=== PATIENT | male | born 1955 | race Caucasian/White ===

== ENCOUNTER 2020-12-13 13:52 | Outpatient (CLI) | payer MEDICARE, OTHER, SELFPAY ==
[2020-12-13 14:26] LABS: Hematocrit 45.3 % (42.0-52.0); Hemoglobin 15.4 g/dL (14.0-18.0); Mean Corpuscular Hemoglobin 28.8 pg (26-34); Mean Corpuscular Volume 84.7 fl (80-100); Platelet Count Result 279 k/mm3 (150-375); Red Blood Count 5.35 M/mm3 (4.6-6.20); Red Cell Distribution Width 12.5 % (11.5-14.5); White Blood Count 10.1 K/mm3 (4.5-10.0)
[2020-12-13 15:10] LABS: Prostate Specific Antigen 1.4 ng/mL (< OR = 4.0)
[2020-12-13 15:51] LABS: Iron 114 ug/dL (49-181)
[2020-12-13 16:00] LABS: Percent Iron Saturation 33 % (20-50)
[2020-12-17 22:40] LABS: Testosterone Free 65.5 pg/mL (35.0-155.0); Testosterone Total 385 ng/dL (250-1100)
== END 2020-12-13 13:53 | disposition home or self-care (01) ==
LOC: ANHLAB 14:02
PROVIDERS: PCP Physician Assistant; Visit Provider Physician Assistant
DX: Z12.5 Encounter for screening for malignant neoplasm of prostate (principal); D58.2 Other hemoglobinopathies; E83.119 Hemochromatosis, unspecified; R53.83 Other fatigue
CPT/HCPCS: 36415; 82728; 83540; 83550; 84153; 84402; 84403; 84443; 85027; C9803; G0103; U0003; U0005

== ENCOUNTER 2021-08-10 11:26 | Outpatient (CLI) | payer MEDICARE, OTHER, SELFPAY ==
[2021-08-10 12:20] LABS: Alanine Aminotransferase 22 U/L (4-50); Albumin Level 4.6 g/dL (3.5-5.1); Alkaline Phosphatase 69 U/L (38-126); Anion Gap 9 mmol/L (8-16); Aspartate Amino Transferase 26 U/L (17-59); Bilirubin,Total 0.6 mg/dL (0.2-1.3); Blood Urea Nitrogen 18 mg/dL (9-20); Calcium 8.9 mg/dL (8.4-10.2); Carbon Dioxide 28 mmol/L (22-30); Chloride 99 mmol/L (98-107); Cholesterol 210 mg/dL (0-200); Estimated Glomerular Filt Rate > 60; Glucose 154 mg/dL (65-110); HDL Direct 30 mg/dL; Potassium 5.4 mmol/L (3.4-5.0); Sodium 136 mmol/L (137-145); Triglycerides 369 mg/dL (<150)
[2021-08-10 12:31] LABS: LDL Cholesterol Direct 126 mg/dL
[2021-08-10 12:32] LABS: Digoxin 0.5 ng/mL (0.8-2.0)
[2021-08-10 13:24] LABS: Folic Acid 18.7 ng/mL (2.76->20)
== END 2021-08-10 11:27 | disposition home or self-care (01) ==
LOC: ANHLAB 11:29
PROVIDERS: PCP Internal Medicine; Visit Provider Physician Assistant
DX: R53.83 Other fatigue (principal); E66.9 Obesity, unspecified
CPT/HCPCS: 36415; 80053; 80061; 80162; 82607; 82746

== ENCOUNTER 2021-08-11 11:48 | Outpatient (CLI) | payer MEDICARE, OTHER, SELFPAY ==
[2021-08-11 12:42] LABS: Hemoglobin A1C 6.6 % (<5.7)
== END 2021-08-11 11:49 | disposition home or self-care (01) ==
PROVIDERS: PCP Physician Assistant; Visit Provider Physician Assistant
DX: R73.9 Hyperglycemia, unspecified (principal)
CPT/HCPCS: 36415; 83036

== ENCOUNTER 2022-02-21 09:46 | Outpatient (CLI) | payer MEDICARE, OTHER, SELFPAY ==
[2022-02-21 10:44] LABS: Hematocrit 41.1 % (42.0-52.0); Mean Corpuscular HGB Conc 34.1 g/dl (32-36); Mean Corpuscular Hemoglobin 29.9 pg (26-34); Mean Corpuscular Volume 87.8 fl (80-100); Mean Platelet Volume 10.6 fl (7.4-10.4); Platelet Count Result 338 k/mm3 (150-375); Red Blood Count 4.68 M/mm3 (4.6-6.20); Red Cell Distribution Width 13.4 % (11.5-14.5); White Blood Count 11.8 K/mm3 (4.5-10.0)
[2022-02-21 11:05] LABS: Alanine Aminotransferase 37 U/L (6-50); Albumin Level 4.5 g/dL (3.5-5.1); Alkaline Phosphatase 70 U/L (38-126); Anion Gap 13 mmol/L (8-16); Aspartate Amino Transferase 43 U/L (17-59); Bilirubin,Total 0.6 mg/dL (0.2-1.3); Blood Urea Nitrogen 14 mg/dL (9-20); Calcium 9.6 mg/dL (8.4-10.2); Carbon Dioxide 27 mmol/L (22-30); Chloride 96 mmol/L (98-107); Cholesterol 207 mg/dL (0-200); Estimated Glomerular Filt Rate > 60; Glucose 144 mg/dL (65-110); HDL Direct 28 mg/dL; Potassium 4.1 mmol/L (3.4-5.0); Sodium 136 mmol/L (137-145); Triglycerides 310 mg/dL (<150)
[2022-02-21 11:17] LABS: LDL Cholesterol Direct 127 mg/dL
[2022-02-21 11:37] LABS: Prostate Specific Antigen 1.8 ng/mL (< OR = 4.0)
[2022-02-21 11:41] LABS: Digoxin 0.6 ng/mL (0.8-2.0)
[2022-02-21 11:50] LABS: Creatinine Urine 49.4 mg/dL
[2022-02-21 11:54] LABS: MALB Creatinine Ratio 13.6 mg/g (0-30); Microalbumin Urine Random 6.7 mg/L (0-16.7)
[2022-02-21 11:58] LABS: Hemoglobin A1C 7.2 % (<5.7)
== END 2022-02-21 09:47 | disposition home or self-care (01) ==
LOC: ANHLAB 09:49
PROVIDERS: PCP Physician Assistant; Visit Provider Physician Assistant
DX: I48.91 Unspecified atrial fibrillation (principal); I10 Essential (primary) hypertension; E11.9 Type 2 diabetes mellitus without complications; Z12.5 Encounter for screening for malignant neoplasm of prostate
CPT/HCPCS: 36415; 80053; 80061; 80162; 82043; 83036; 84153; 84443; 85027; G0103

== ENCOUNTER 2022-04-03 07:19 | Outpatient (CLI) | payer MEDICARE, OTHER, SELFPAY ==
--- NOTE | 2022-04-03 07:25 | ECHO_ITS ---
Patient Info Name: Soham Rogers Age: 66 years : 1955 Gender: Male Ht: 75 in Wt: 244 lbs BSA: 2.44 m2 HR: 69 bpm BP: 178 / 100 mmHg Technical Quality: Good Exam Date: 04/03/2022 8:08 AM Exam Location: [facility] Pulmonary Patient Status: Outpatient Admit Date: 04/03/2022 Staff Ordering Physician: Jeovany Dixon DO Integrity Engineer: Darwin Bryson RDCS, RT Attending Provider: Jeovany Dixon DO Referring Physician: Zack BANKS; Exam Type: CA echo doppler color flow Study Info Indications I48.1 - Persistent atrial fibrillation Complete two-dimensional, color flow and Doppler transthoracic echocardiogram is performed. Strain analysis performed. Summary 1. Complete two-dimensional, color flow and Doppler transthoracic echocardiogram is performed. 2. Left ventricular chamber dimension is normal. 3. Left ventricular systolic function is normal, estimated at 60-65%. 4. There is mildly increased left ventricular wall thickness. 5. The left ventricular diastolic function is grade I diastolic dysfunction. 6. E/e' 6 is not elevated. 7. Global longitudinal strain is abnormal at -15.0%. Left Ventricle E/e' 6 is not elevated. Global longitudinal strain is abnormal at -15.0%. Left ventricular chamber dimension is normal. Left ventricular systolic function is normal, estimated at 60-65%. There is mildly increased left ventricular wall thickness. The left ventricular diastolic function is grade I diastolic dysfunction. Right Ventricle Right ventricular systolic function is normal and with normal TAPSE 2.0 cm. Right ventricular chamber dimension is normal. Left Atria Left atrial chamber dimension is normal. Right Atria Right atrial chamber dimension is normal. Aortic Valve The aortic valve is trileaflet. There is no aortic valve stenosis. There is no aortic valve regurgitation. Pulmonic Valve There is no pulmonic regurgitation. Mitral Valve There is no mitral valve stenosis. There is no mitral valve regurgitation. Tricuspid Valve There is no tricuspid valve regurgitation. Pericardium/Pleural There is no pericardial effusion. Inferior Vena Cava Normal inferior vena cava with >50% collapse upon inspiration consistent with normal right atrial pressure, 5 mmHg. Aorta The aortic root size at the sinus of Valsalva is normal. Left Ventricular Outflow Tract Name Value Normal LVOT 2D LVOT Diameter 2.2 cm LVOT Doppler LVOT Peak Gradient 8 mmHg LVOT Mean Gradient 5 mmHg LVOT VTI 27 cm LVOT VTI/AV VTI Ratio 0.9 LVOT Stroke Volume 102 ml LVOT CO 7.2 l/min LVOT CI 2.9 l/min/m2 Mitral Valve Name Value Normal MV Doppler MV Dec
== END 2022-04-03 07:20 | disposition home or self-care (01) ==
LOC: ANHCARD 07:21
PROVIDERS: PCP Physician Assistant; Visit Provider Internal Medicine Cardiovascular Disease
DX: I48.91 Unspecified atrial fibrillation (principal)
CPT/HCPCS: 93306

== ENCOUNTER 2022-06-25 10:49 | Outpatient (CLI) | payer MEDICARE, OTHER, SELFPAY ==
[2022-06-25 11:59] LABS: Alanine Aminotransferase 24 U/L (6-50); Albumin Level 4.3 g/dL (3.5-5.1); Alkaline Phosphatase 61 U/L (38-126); Anion Gap 7 mmol/L (8-16); Aspartate Amino Transferase 23 U/L (17-59); Bilirubin,Total 0.3 mg/dL (0.2-1.3); Blood Urea Nitrogen 12 mg/dL (9-20); Calcium 8.8 mg/dL (8.4-10.2); Carbon Dioxide 30 mmol/L (22-30); Chloride 105 mmol/L (98-107); Cholesterol 142 mg/dL (0-200); Estimated Glomerular Filt Rate > 60; Glucose 152 mg/dL (65-110); HDL Direct 36 mg/dL; Potassium 4.9 mmol/L (3.4-5.0); Sodium 142 mmol/L (137-145); Triglycerides 168 mg/dL (<150)
[2022-06-25 12:09] LABS: LDL Cholesterol Direct 76 mg/dL
== END 2022-06-25 10:50 | disposition home or self-care (01) ==
LOC: ANHLAB 10:51
PROVIDERS: PCP Physician Assistant; Visit Provider Internal Medicine Cardiovascular Disease
DX: E78.5 Hyperlipidemia, unspecified (principal)
CPT/HCPCS: 36415; 80053; 80061

== ENCOUNTER 2023-02-26 10:58 | Outpatient (CLI) | payer MEDICARE, OTHER, SELFPAY ==
[2023-02-26 11:57] LABS: Basophils Percent Auto 0.4 % (0.2-1.2); Eosinophils Absolute Auto 0.1 K/mm3 (0-0.3); Eosinophils Percent Auto 1.4 % (0-4.4); Hematocrit 43.7 % (42.0-52.0); Hemoglobin 14.4 g/dL (14.0-18.0); Immature Granulocyte Absolute 0.04 K/mm3 (0.00-0.031); Immature Granulocyte Percent A 0.5 % (0-0.5); Lymphocytes Absolute Auto 2.58 K/mm3 (0.9-3.2); Lymphocytes Percent Auto 30.8 % (18.3-44.2); Mean Corpuscular Hemoglobin 29.1 pg (26-34); Mean Corpuscular Volume 88.3 fl (80-100); Mean Platelet Volume 10.6 fl (7.4-10.4); Monocytes Absolute Auto 0.7 K/mm3 (0.1-0.6); Monocytes Percent Auto 7.8 % (2.6-8.5); Neutrophils Percent Auto 59.1 % (45.5-73.1); Platelet Count Result 353 k/mm3 (150-375); Red Blood Count 4.95 M/mm3 (4.6-6.20); Red Cell Distribution Width 12.9 % (11.5-14.5); White Blood Count 8.4 K/mm3 (4.5-10.0)
[2023-02-26 12:09] LABS: Alanine Aminotransferase 24 U/L (6-50); Albumin Level 4.3 g/dL (3.5-5.1); Alkaline Phosphatase 50 U/L (38-126); Anion Gap 6 mmol/L (8-16); Aspartate Amino Transferase 31 U/L (17-59); Bilirubin,Total 0.6 mg/dL (0.2-1.3); Blood Urea Nitrogen 10 mg/dL (9-20); Calcium 8.8 mg/dL (8.4-10.2); Carbon Dioxide 30 mmol/L (22-30); Chloride 100 mmol/L (98-107); Estimated Glomerular Filt Rate > 60; Glucose 146 mg/dL (65-110); Potassium 4.1 mmol/L (3.4-5.0); Sodium 136 mmol/L (137-145)
[2023-02-26 12:58] LABS: Hemoglobin A1C 6.4 % (<5.7)
[2023-02-26 13:28] LABS: Folic Acid > 20.0 ng/mL (2.76->20); Vitamin B12 > 1000.0 pg/mL (239-931)
[2023-02-26 14:57] LABS: MALB Creatinine Ratio < 17.6 mg/g (0-30); Microalbumin Urine Random < 6.0 mg/L (0-16.7)
[2023-02-26 17:34] LABS: Prostate Specific Antigen 1.5 ng/mL (< OR = 4.0)
== END 2023-02-26 10:59 | disposition home or self-care (01) ==
PROVIDERS: PCP Internal Medicine; Visit Provider Physician Assistant
DX: E11.9 Type 2 diabetes mellitus without complications (principal); Z12.5 Encounter for screening for malignant neoplasm of prostate; R53.83 Other fatigue
CPT/HCPCS: 36415; 80053; 82043; 82607; 82746; 83036; 84153; 84443; 85025; G0103

== ENCOUNTER 2023-09-10 08:11 | Outpatient (CLI) | payer MEDICARE, OTHER, SELFPAY ==
[2023-09-10 08:59] LABS: Alanine Aminotransferase 21 U/L (6-50); Albumin Level 4.4 g/dL (3.5-5.1); Alkaline Phosphatase 63 U/L (38-126); Anion Gap 5 mmol/L (4-12); Aspartate Amino Transferase 22 U/L (17-59); Bilirubin,Total 0.4 mg/dL (0.2-1.3); Blood Urea Nitrogen 11 mg/dL (9-20); Calcium 9.5 mg/dL (8.4-10.2); Carbon Dioxide 32 mmol/L (22-30); Chloride 103 mmol/L (98-107); Estimated Glomerular Filt Rate > 60; Glucose 162 mg/dL (65-110); Potassium 5.1 mmol/L (3.4-5.0); Sodium 140 mmol/L (137-145)
== END 2023-09-10 08:12 | disposition home or self-care (01) ==
LOC: ANHLAB 08:13
PROVIDERS: PCP Physician Assistant; Visit Provider Physician Assistant
DX: E11.9 Type 2 diabetes mellitus without complications (principal)
CPT/HCPCS: 36415; 80053; 83036

== ENCOUNTER 2024-01-07 10:01 | Outpatient (CLI) | payer MEDICARE, OTHER, SELFPAY ==
[2024-01-07 11:00] LABS: Cholesterol 158 mg/dL (0-200); HDL Direct 32 mg/dL; Triglycerides 320 mg/dL (<150)
[2024-01-07 11:01] LABS: Alanine Aminotransferase 30 U/L (6-50); Albumin Level 4.7 g/dL (3.5-5.1); Alkaline Phosphatase 60 U/L (38-126); Anion Gap 11 mmol/L (4-12); Aspartate Amino Transferase 35 U/L (17-59); Bilirubin,Total 0.7 mg/dL (0.2-1.3); Blood Urea Nitrogen 11 mg/dL (9-20); Calcium 9.5 mg/dL (8.4-10.2); Carbon Dioxide 31 mmol/L (22-30); Chloride 95 mmol/L (98-107); Estimated Glomerular Filt Rate > 60; Glucose 153 mg/dL (65-110); Potassium 4.2 mmol/L (3.4-5.0); Sodium 137 mmol/L (137-145)
[2024-01-07 11:11] LABS: LDL Cholesterol Direct 83 mg/dL
[2024-01-07 11:26] LABS: Hemoglobin A1C 7.3 % (<5.7)
== END 2024-01-07 10:02 | disposition home or self-care (01) ==
LOC: ANHLAB 10:05
PROVIDERS: PCP Physician Assistant; Referring Provider Internal Medicine Cardiovascular Disease; Visit Provider Nurse Practitioner
DX: E78.5 Hyperlipidemia, unspecified (principal); E11.9 Type 2 diabetes mellitus without complications
CPT/HCPCS: 36415; 80053; 80061; 83036

== ENCOUNTER 2024-02-01 11:27 | Emergency (ER) | payer MEDICARE, OTHER, SELFPAY ==
[2024-02-01] VITALS (19 sets, daily range): BP systolic 114–151; BP diastolic 75–91; PULSE 63–667; RESP 12–20; TEMP 36.6–36.9; O2SAT 92–97
--- NOTE | ~2024-02-01 | XR_ITS ---
EXAM: XR foot LT min 3V DATE: 02/01/2024 17:54 HISTORY: Toe pain, suspect gout . COMPARISON: None available. FINDINGS: Normal mineralization. No fracture or dislocation. No lytic or blastic lesion. Mild degene rative change at the first MTP joint. No erosion or periosteal change. Vascular calcification. IMPRESSION: No acute osseous finding in the left foot. No radiographic findings of gout. Reviewed, dictated and finalized at location K.
--- NOTE | ~2024-02-01 | XR_ITS ---
EXAM: XR knee LT 3V DATE: 02/01/2024 17:54 HISTORY: toe pain, suspect gout . COMPARISON: None available. FINDINGS: Normal mineralization. No fracture or dislocation. No lytic or blastic lesion. Mild left k nee osteoarthritis. Moderate volume joint fluid. No erosion or periosteal change. Soft tissues within normal limits. IMPRESSION: No acute osseous finding the left knee. No radiographic features of gout. Moderate left k nee joint effusion. Reviewed, dictated and finalized at location K. IMPRESSION: No acute osseous finding the left knee. No radiographic features of gout. Moderate left knee joint effusion.
--- NOTE | 2024-02-01 17:32 | ED.LOWEXIN ---
HPI - Extremity Injury (Lower) General Chief Complaint: Extremity Injury, Lower Stated Complaint: gout Time Seen by Provider: 02/01/24 17:13 History of Present Illness HPI Narrative: This is a 68-year-old male with a past medical history significant for atrial fibrillation, DVT/PE presently taking warfarin. He states that for last 10 days he has been having some pain in his left knee as well as the left hallux. Has no history of gout but states that his family is concerned that he could be having gout. He denies any fever, chills, decreased range of motion but states that the pain is coming and going in waves. He states the pain is slightly better today than it has been over the last few days but wants to get evaluated. No traumatic injuries, no overlying redness, cellulitis or drainage. Was otherwise in his normal state of health and has not missed any of his medications. Related Data Home Medications Medication Instructions Recorded Confirmed cholecalciferol (vitamin D3) 250 250 mcg PO WEEKLY 12/05/20 01/07/24 mcg (10,000 unit) capsule fish, borage, flaxseed oils-omega cap PO 12/05/20 01/07/24 3,6,9 comb no.1 1,200 mg capsule ([place] 3-6-9) multivitamin 1 tablet PO DAILY 03/11/23 01/07/24 vitamin B complex (B 1 tablet PO DAILY 03/11/23 01/07/24 Complex-Vitamin B12 tablet) Allergies Allergy/AdvReac Type Severity Reaction Status Date / Time No Known Allergies Allergy Verified 01/07/24 07:30 Review of Systems Review of Systems: As reviewed above in HPI [facility] Past Medical History Medical History A-fib History of blood clots Hx of pulmonary embolus Hypertension Social History Social History Smoking status: Never smoker Second hand tobacco smoke exposure: No Alcohol intake: current Substance use: unknown Do You Feel Safe in your Home?: Yes Lack of Transportation: No Lack of Food: Never True Current Housing: I Have Housing Concerned About Future Housing: No Difficulty Paying Gas/Electric Bills: No Difficulty Paying for Meds: No Currently Unemployed: No Education: High School Diploma/GED Difficulty w/ Childcare or Family Care: No Exam Narrative: GENERAL: [Well-appearing, well-nourished, and in no acute distress.] HEAD: [Normocephalic, atraumatic.] EYES: [PERRLA and EOMI.] ENT: Nares clear, no rhinorrhea or epistaxis. Mucous membranes moist. NECK: Supple. CHEST: [Clear to auscultation. No respiratory distress.] HEART: [Regular rate and rhythm]. No murmur heard. [Normal peripheral pulses.] ABDOMEN: [Soft, nondistended], [nontender], [No rigidity or guarding] EXTREMITIES: The left knee has some warmth about it but without any erythema, tenderness with palpation or obvious signs of infection or puncture wounds. Range of motion with passive range of motion is full. Active range of motion is limited secondary to pain. Mild suprapatellar effusion noted. Left hallux with similar warmth without any erythema, cellulitic skin changes or drainage. Full range of motion passively. Able to bear weight. No calf swelling or asymmetry SKIN: Warm, dry, no rash. NEURO: [No focal deficits]. Alert and oriented [x3.] PSYCH: [Normal mood and affect.] Course Vital Signs Vital signs: Vital Signs Temperature 36.6 C 02/01/24 11:31 Pulse Rate 85 02/01/24 11:31 Respiratory Rate 18 02/01/24 11:31 Blood Pressure 129/79 02/01/24 11:31 Pulse Oximetry 96 02/01/24 11:31 Oxygen Delivery Room Air 02/01/24 11:31 Temperature 36.6 C 02/01/24 11:31 Pulse Rate 71 02/01/24 19:00 Respiratory Rate 16 02/01/24 19:00 Blood Pressure 125/82 02/01/24 17:31 Pulse Oximetry 94 02/01/24 19:00 Oxygen Delivery Room Air 02/01/24 11:31 MDM - Extremity Injury (Lower) MDM Narrative Medical decision making narrative: This is a 68-y
[2024-02-01] MEDS: KETOROLAC 15 MG/ML VIAL (*BKC) IV PUSH (17:41)
[2024-02-01 17:46] LABS: Basophils Percent Auto 0.2 % (0.2-1.2); Eosinophils Absolute Auto 0.1 K/mm3 (0-0.3); Eosinophils Percent Auto 0.7 % (0-4.4); Hematocrit 45.4 % (42.0-52.0); Hemoglobin 15.6 g/dL (14.0-18.0); Immature Granulocyte Absolute 0.06 K/mm3 (0.00-0.031); Immature Granulocyte Percent A 0.5 % (0-0.5); Lymphocytes Absolute Auto 3.03 K/mm3 (0.9-3.2); Lymphocytes Percent Auto 25.3 % (18.3-44.2); Mean Corpuscular HGB Conc 34.4 g/dl (32-36); Mean Corpuscular Hemoglobin 29.5 pg (26-34); Mean Corpuscular Volume 85.8 fl (80-100); Mean Platelet Volume 10.2 fl (7.4-10.4); Monocytes Percent Auto 8.4 % (2.6-8.5); Neutrophils Absolute Auto 7.8 K/mm3 (1.3-6.7); Neutrophils Percent Auto 64.9 % (45.5-73.1); Platelet Count Result 458 k/mm3 (150-375); Red Blood Count 5.29 M/mm3 (4.6-6.20); Red Cell Distribution Width 12.9 % (11.5-14.5)
[2024-02-01 18:05] LABS: Anion Gap 14 mmol/L (4-12); Blood Urea Nitrogen 14 mg/dL (9-20); Calcium 9.8 mg/dL (8.4-10.2); Carbon Dioxide 29 mmol/L (22-30); Chloride 95 mmol/L (98-107); Estimated CRCL calculation 80 ml/min; Estimated Glomerular Filt Rate > 60; Glucose 114 mg/dL (65-110); Potassium 3.7 mmol/L (3.4-5.0); Sodium 138 mmol/L (137-145)
[2024-02-01 18:36] LABS: Erythrocyte Sedimentation Rate 31 mm/hr (0-20)
== END 2024-02-01 22:27 | disposition home or self-care (01) ==
PROVIDERS: Emergency Provider Student in an Organized Health Care Education/Training Program; PCP Nurse Practitioner
DX: M10.9 Gout, unspecified (principal); I48.91 Unspecified atrial fibrillation; Z79.01 Long term (current) use of anticoagulants; I10 Essential (primary) hypertension; Z86.711 Personal history of pulmonary embolism
CPT/HCPCS: 36415; 73562; 73630; 80048; 85025; 85652; 86140; 96374; 99284; J1885

== ENCOUNTER 2024-07-22 08:34 | Outpatient (CLI) | payer MEDICARE, OTHER, SELFPAY ==
--- OUTSIDE RECORDS SUMMARY | 2024-07-22 08:37 | XMS_ITS | Clinical Summary ---
Author Organization [facility] Address [address], [address] [address] Phone Care Team Providers Care Social Media Senior Associate Name Role Phone rAis Johns MD Unavailable [phone] Allergies No known active allergies Medications ASPIRIN PO Take 81 mg by mouth daily. Active Cholecalciferol (VITAMIN D PO) Activ e Ipratropium Blairs (ATROVENT NA) Active [place]-3 Fatty Acids (OMEGA 3 PO) Active Multiple Vitamin (MULTIVITAMINS PO) Take by mouth. Activ e apixaban (Eliquis) 5 MG TabletIndication s:Atrial Fibrillation Take 1 Tab by mouth 2 times daily. Indications: Atrial Fibrillation 180 Tab 3 0 Active furosemide (LASIX) 40 MG Tablet Take 1 Tab by mouth daily. 90 Tab 2 0 Active lisinopril (PRINIVIL, ZESTRIL) 10 MG Tablet Take 1 Tab by mouth daily. 90 Tab 3 0 Active metoprolol tartrate (LOPRESSOR) 100 MG Tablet Take 1 Tab by mouth daily. 30 Tab 11 0 Active digoxin (LANOXIN) 125 MCG Tablet TAKE 1 TABLET BY MOUTH DAILY 90 Tab 1 Active spironolactone (ALDACTONE) 50 MG Tablet Take 1 Tab by mouth daily. 90 Tab 1 1 Active Active Problems Problem Noted Date Diagnosed Date Physical exam, annual (Adult) 09/29/2017 Screening for colon cancer 10/29/2016 Pain in left testicle 05/01/2016 Hyperglycemia 05/01/2016 Umbilical hernia without obstruction and without gangrene 03/21/2016 Acute maxillary sinusitis 02/09/2016 Pure hypercholesterolemia 10/03/2015 Essential hypertension with goal blood pressure less than 140/90 10/03/2015 Fatigue 09/14/2015 SHAHRIAR on CPAP 09/14/2015 Atrial fibrillation 09/14/2015 Resolved Problems Problem Noted Date Diagnosed Date Resolved Date Umbilical mass 10/03/2015 03/21/2016 Immunizations Immunization Administration Dates Next Due DTAP VACCINE 09/07/2010 Influenza Vaccine greater than 3 yrs 03/20/2020, 03/09/2014 Influenza Vaccine, Quadrivalent, PF 02/08,04/06/2019,02/23/2018,03/31,02/14/2015 02/15/2016 PUR FLU 3+ YRS PRES FREE QUAD IM 05/01/2016 Pneumococcal Vaccine - 13 Valent 03/09/2014 Pneumococcal Vaccine Adult - 23 Valent 04/18/2017 Zoster Vaccine Recombinant 05/23/2020,03/20/2020 Zoster Vaccine, live 03/20/2020 Family History Medical History Relation Name Comments No Known Problems Father Resp. Fail ure No Known Problems Mother Resp. Fail ure Relation Name Status Comments Father Mother Social History Tobacco Use Types Packs/Day Years Used Date Smoking Tobacco: Never Smokeless Tobacco: Never Tobacco Cessation:Counseling Given: No Alcohol Use Standard Drinks/Week Comments Yes 6 (1 standard drink = 0.6 oz pur e alcohol) Social PHQ-2 Answer Date Recorded Total Score - Questions 1-9 0 11/07 Sex and Gender Information Value Date Recorded Sex Assigned at Not on file Legal Sex Male 9:02 PM CDT Gender Identity Not on file Sexual Orientation Not on file Last Filed Vital Signs Vital Sign Reading Time Taken Comments Blood Pressure 124/78 05/19/2020 8:49 AM PLOW SHAKER Pulse 76 05/19/2020 8:49 AM PLOW SHAKER Temperature 35.7 C (96.3 F) 05/19/2020 8:49 AM PLOW SHAKER Respiratory Rate 16 05/19/2020 8:49 AM PLOW SHAKER Oxygen Saturation 93% 05/19/2020 8:49 AM PLOW SHAKER Inhaled Oxygen Concentration - - Weight 116.1 kg (256 lb) 05/19/2020 8:49 AM PLOW SHAKER Height 190.5 cm (6' 3 ) 05/19/2020 8:49 AM PLOW SHAKER Body Mass Index 32 05/19/2020 8:49 AM PLOW SHAKER Plan of Treatment Health Maintenance Due Date Last Done Comments Hepatitis C Virus (HCV) Screening 1955 Cologuard 2007 Immunochemical Fecal Occult Blood 2007 Respiratory Syncytial Virus (RSV) Immunization (Adult) (1 - Risk 60-74 years 1-dose series) 2017 Pneumococcal Immunization (50+ years) (3 of 3 - PCV20 or PCV21) 04/18/2022 04/18/2017, 03/09/2014 Influenza Immunization (#1) 02/08/202402/08, 03/20/2020, 04/06/2019, Additional history exists SARS-COV-2 Immunization ( - season) 2024 04/25/2021, 10/09/2020, 09/18/2020 Colonoscopy 05/05/2027 05/05/2017 Colorectal Cancer Screening 05/05/2027 05/05/2017 DTaP/Tdap/Td Immunization Discontinued 09/07/2010 PSA Discussion Completed 04/24/2016 Pneumococcal Immunization Combined Discontinued 04/18/2017, 03/09/2014 Zoster Immunization Completed 05/23/2020, 03/20/2020, 03/20/2020 Hepatitis B Immunization Aged Out No longer eligible based on patient's age to complete this topic Meningococcal Immunization (ACWY) Aged Out No longer eligible based on patient's age to complete this topic Rotavirus Immunization Aged Out No lo nger eligible based on patient's age to complete this topic Procedures Procedure Name Priority Date/Time Associated Diagnosis Comments PSA SCREEN Routine 04/24/2016 8:10 AM PLOW SHAKER Pure hypercholesterolemia Essential hypertension with goal blood pressure less than 140/90 from Last 3 Months or Most Recently Relevant to Health Maintenance Results * PSA SCREEN (04/24/2016 8:10 AM PLOW SHAKER) PSA SCREEN, TOTAL 1.22 0.00 - 4.00 ng/mL 04/24/2016 1:40 PM PLOW SHAKER [facility] Blood specimen (specimen) Venipuncture / Unknown 04/24/2016 8:10 AM PLOW SHAKER 04/24/2016 8:14 AM PLOW SHAKER Narrative [facility] - 04/24/2016 1:40 PM PLOW SHAKER PSA NOTE: The PSA value should be used in conjunction with information available from clinical evaluation and other diagnostic procedures. us Aris Canada MD CHEMISTRY ORDERABLES Final Re sult [facility] [address] [place] [address] from Last 3 Months or Most Recently Relevant to Health Maintenance Insurance MEDICARE Care Teams Social Media Senior Associate Relationship Specialty Start Date End Date Aris Johns MD [address] [address] General Surgery 03/20/16
--- OUTSIDE RECORDS SUMMARY | 2024-07-22 08:37 | XMS_ITS | Clinical Summary ---
Author Organization [facility] Address [address] [place] [address] Care Team Providers Care Acid Pumper Name Role Phone Unavailable Primary Care Provider Unavailabl e Social History Tobacco Use Types Packs/Day Years Used Date Smoking Tobacco: Never Assessed Sex and Gender Information Value Date Recorded Sex Assigned at Not on file Legal Sex Male 4:42 AM BORDER GUARD Gender Identity Not on file Sexual Orientation Not on file Plan of Treatment Health Maintenance Due Date Last Done Comments DTAP/TDAP/TD VACCINES (1 - Tdap) 1976 COLORECTAL SCREENING 2002 Colorectal Cancer Screening 2002 FIT-DNA Q 3 years 2002 FIT/FOBT Q 1 year 2002 03/03/1998 Flex Sig/CT Colonography Q 5 years 2002 PNEUMOCOCCAL VACCINE 65+ YEARS (1 of 1 - PCV) 04/29/20 07 ZOSTER VACCINE (1 of 2) 2007 INFLUENZA VACCINE (#1) 2024 RSV VACCINE (60+ or ) (1 - 1-dose 75+ series) 2032
--- OUTSIDE RECORDS SUMMARY | 2024-07-22 08:37 | XMS_ITS | Encounter Summary ---
Author Organization [facility] Address [address] [place] [address] Care Team Providers Care Heavy Line Technician Name Role Phone Ivan Abel MD Primary Care Provider Encounter Details Date Type Department Care Team (Late st Contact Info) Description 03/03/1998 Outpatient Historical [facility] Primary Care - [address] [place] [address] Chato Romano MD NO ADDRESS ON FILE Social History Tobacco Use Types Packs/Day Years Used Date Smoking Tobacco: Never Assessed Sex and Gender Information Value Date Recorded Sex Assigned at Not on file Legal Sex Male 4:42 AM PRICING STRATEGIST Gender Identity Not on file Sexual Orientation Not on file documented as of this encounter Plan of Treatment Not on file documented as of this encounter Visit Diagnoses Not on filedocumented in this encounter Care Teams Heavy Line Technician Relationship Specialty Start Date End Date Ivan Abel MD PCP - General Internal Medicine 12/28/15 05/06/17 documented as of this encounter
--- OUTSIDE RECORDS SUMMARY | 2024-07-22 08:37 | XMS_ITS | Encounter Summary ---
Author Organization [facility] Address [address] [place] [address] Phone Care Team Providers Care Roof Bolter Helper Name Role Phone Aris Canada MD Primary Care Provider [phone] Aris Johns MD Unavailable [phone] Reason for Visit * Reason Comments Medication Refill Encounter Details Date Type Department Care Team (Late st Contact Info) Description 06/20/2020 Refill [facility] [address] [place] [address] Aris Canada MD [address] [address] Medication Refill Social History Tobacco Use Types Packs/Day Years Used Date Smoking Tobacco: Never Smokeless Tobacco: Never Alcohol Use Standard Drinks/Week Comments Yes 6 (1 standard drink = 0.6 oz pur e alcohol) Social PHQ-2 Answer Date Recorded Total Score - Questions 1-9 0 11/07 Sex and Gender Information Value Date Recorded Sex Assigned at Not on file Legal Sex Male 9:02 PM CDT Gender Identity Not on file Sexual Orientation Not on file documented as of this encounter Miscellaneous Notes * Telephone Encounter - Aris Canada MD - 06/20/2020 5:15 PM CST Prescription approved. Please call in ING TECHN * Telephone Encounter - Flor Mueller RN - 06/20/2020 4:49 PM CST Sent to PCP ING TECHN * Telephone Encounter - Flor Mueller RN - 06/20/2020 4:48 PM CST Medication failed the protocol, provider to review and approve the medication order if appropriate. Last OV 05/19/20, f/U None, Last Rx 03/23/20 Flor PRATT Requested Prescriptions Pending Prescriptions Disp Refills digoxin (LANOXIN) 125 MCG Tablet [Pharmacy Med Name: DIGOXIN 0.125MG TABLETS (YELLOW)] 90 Tab 0 Sig: TAKE 1 TABLET BY MOUTH DAILY Cardiovascular: Antiarrhythmic Agents - Digoxin Failed - 06/20/2020 3:19 PM Failed - Digoxin (serum) in normal range and within 360 days DIGOXIN Date Value Ref Range Status 08/08/2017 0.2 (L) 0.8 - 2.0 ng/mL Final Passed - Valid encounter within last 12 months Past Office Visits Recent Outpatient Visits 1 month ago SHAHRIAR on CPAP [facility] - Aris Elder MD 7 months ago SHAHRIAR on CPAP [facility] Aris Edmonds MD 1 year ago Essential hypertension with goal blood pressure less than 140/90 [facility] Aris Edmonds MD 1 year ago Pure hypercholesterolemia [facility] Aris Edmonds MD 2 years ago Hyperglycemia [facility] Aris Elder MD Upcoming Appointments Future Appointments In 5 months Lab, [facility], [facility] FLEET DISPATCH MANAGER - Recent and Past Visits Recent Visits Date Type Provider Dept 05/19/20 Office Visit Aris Canada MD [facility] 11/19/19 Office Visit Aris Canada MD [facility] 04/06/19 Office Visit Aris [facility] MD [facility] Showing recent visits within past 460 days with a meds authorizing provider and meeting all other requirements Future Appointments No visits were found meeting these conditions. Showing future appointments within next 90 days with a meds authorizing provider and meeting all other requirements ING TECHN documented in this encounter Plan of Treatment Not on file documented as of this encounter Visit Diagnoses Not on filedocumented in this encounter Additional Health Concerns Assessment Noted Time PHQ-9 Depression Total Score: 0 11/19/19 20 9:34 AM CDT documented as of this encounter Care Teams Roof Bolter Helper Relationship Specialty Start Date End Date Aris Canada MD [address] [address] [place] [address] PCP - General Family Medicine 04/25/15 09/01/23 Aris Johns MD [address] [facility] [address] [place] [address] General Surgery 03/20/16 documented as of this encounter
[2024-07-22 09:39] LABS: Alanine Aminotransferase 24 U/L (6-50); Albumin Level 4.4 g/dL (3.5-5.1); Alkaline Phosphatase 54 U/L (38-126); Anion Gap 11 mmol/L (4-12); Aspartate Amino Transferase 26 U/L (17-59); Bilirubin,Total 0.7 mg/dL (0.2-1.3); Blood Urea Nitrogen 16 mg/dL (9-20); Calcium 9.7 mg/dL (8.4-10.2); Carbon Dioxide 29 mmol/L (22-30); Chloride 99 mmol/L (98-107); Cholesterol 121 mg/dL (0-200); Estimated Glomerular Filt Rate > 60; Glucose 126 mg/dL (65-110); HDL Direct 30 mg/dL; Hemoglobin A1C 6.7 % (<5.7); Potassium 4.5 mmol/L (3.4-5.0); Sodium 139 mmol/L (137-145); Triglycerides 336 mg/dL (<150)
[2024-07-22 09:52] LABS: LDL Cholesterol Direct 59 mg/dL
[2024-07-22 10:12] LABS: Prostate Specific Antigen 1.9 ng/mL (< OR = 4.0)
== END 2024-07-22 08:35 | disposition home or self-care (01) ==
PROVIDERS: PCP Nurse Practitioner; Visit Provider Nurse Practitioner
DX: Z12.5 Encounter for screening for malignant neoplasm of prostate (principal); E78.5 Hyperlipidemia, unspecified; E11.9 Type 2 diabetes mellitus without complications; Z79.899 Other long term (current) drug therapy
CPT/HCPCS: 36415; 80053; 80061; 83036; 84153; 84443; G0103

== ENCOUNTER 2024-12-15 12:32 | Outpatient (CLI) | payer MEDICARE, OTHER, SELFPAY ==
--- OUTSIDE RECORDS SUMMARY | 2024-12-15 12:34 | XMS_ITS | Clinical Summary ---
Author Organization [facility] Address [address] [place] [address] Care Team Providers Care Aircraft Instrument Mechanic Name Role Phone Unavailable Primary Care Provider Unavailabl e Social History Tobacco Use Types Packs/Day Years Used Date Smoking Tobacco: Never Assessed Sex and Gender Information Value Date Recorded Sex Assigned at Not on file Legal Sex Male 4:42 AM SANITARY ENGINEERING TEACHER Gender Identity Not on file Sexual Orientation Not on file Plan of Treatment Health Maintenance Due Date Last Done Comments DTAP/TDAP/TD VACCINES (1 - Tdap) 1976 COLORECTAL SCREENING 2002 Colorectal Cancer Screening 2002 FIT-DNA Q 3 years 2002 FIT/FOBT Q 1 year 2002 03/03/1998 Flex Sig/CT Colonography Q 5 years 2002 PNEUMOCOCCAL VACCINE 50+ YEARS (1 of 1 - PCV) 04/29/20 07 ZOSTER VACCINE (1 of 2) 2007 INFLUENZA VACCINE (#1) 2025 RSV VACCINE (60+ or ) (1 - 1-dose 75+ series) 2032
--- OUTSIDE RECORDS SUMMARY | 2024-12-15 12:34 | XMS_ITS | Encounter Summary ---
Author Organization [facility] Address [address] [place] [address] Phone Care Team Providers Care Field Case Manager Name Role Phone Aris Canada MD Primary Care Provider [phone] Aris Johns MD Unavailable [phone] Reason for Visit * Reason Comments Medication Refill Encounter Details Date Type Department Care Team (Late st Contact Info) Description 06/20/2020 Refill [facility] [address] [place] [address] Aris Canada MD [address] [address] Medication Refill Social History Tobacco Use Types [...] PM CST Prescription approved. Please call in CAL TRANSCRIPTION SUPERVISOR * Telephone Encounter - Flor Mueller RN - 06/20/2020 4:49 PM CST Sent to PCP CAL TRANSCRIPTION SUPERVISOR * Telephone Encounter - Flor Mueller RN [...] Visits 1 month ago SHAHRIAR on CPAP [facility] - Aris Elder MD 7 months ago SHAHRIAR on CPAP [facility] Aris Edmonds MD 1 year ago Essential hypertension with goal blood pressure less than 140/90 [facility] Aris Edmonds MD 1 year ago Pure hypercholesterolemia [facility] Aris Edmonds MD 2 years ago [facility]is Elder MD Upcoming Appointments Future Appointments In 5 months Lab, [facility], [facility] FRENCH TUTOR - Recent and Past Visits Recent Visits Date Type Provider Dept 05/19/20 Office Visit Aris Canada MD [facility] 11/19/19 Office Visit Aris Canada MD [facility] 04/06/19 Office Visit [facility] Showing recent visits within past 460 days with a meds authorizing provider and meeting all other requirements Future Appointments No visits were found meeting these conditions. Showing future appointments within next 90 days with a meds authorizing provider and meeting all other requirements CAL TRANSCRIPTION SUPERVISOR documented in this encounter Plan of Treatment Not on file documented as of this encounter Visit Diagnoses Not on filedocumented in this encounter Additional Health Concerns Assessment Noted Time PHQ-9 Depression Total Score: 0 11/19/19 20 9:34 AM CDT documented as of this encounter Care Teams Field Case Manager Relationship Specialty Start Date End Date Aris Canada MD [facility] [address] [place] [address] PCP - General Family Medicine 04/25/15 09/01/23 Aris Johns MD #2 [facility] [address] [place] [address] General Surgery 03/20/16 documented as of this encounter
--- OUTSIDE RECORDS SUMMARY | 2024-12-15 12:34 | XMS_ITS | Clinical Summary ---
Author Organization [facility] Address [address], [address] [address] Phone Care Team Providers Care Printing Supervisor Name Role Phone Aris Johns MD Unavailable [phone] Allergies No known active allergies Medications ASPIRIN PO Take 81 mg by mouth daily. Active Cholecalciferol (VITAMIN D PO) Activ e Ipratropium [place] (ATROVENT NA) Active [place]-3 Fatty Acids (OMEGA 3 PO) Active Multiple [...] Comments Blood Pressure 124/78 05/19/2020 8:49 AM PRODUCTION HELPER Pulse 76 05/19/2020 8:49 AM PRODUCTION HELPER Temperature 35.7 C (96.3 F) 05/19/2020 8:49 AM PRODUCTION HELPER Respiratory Rate 16 05/19/2020 8:49 AM PRODUCTION HELPER Oxygen Saturation 93% 05/19/2020 8:49 AM PRODUCTION HELPER Inhaled Oxygen Concentration - - Weight 116.1 kg (256 lb) 05/19/2020 8:49 AM PRODUCTION HELPER Height 190.5 cm (6' 3) 05/19/2020 8:49 AM PRODUCTION HELPER Body Mass Index 32 05/19/2020 8:49 AM PRODUCTION HELPER Plan of Treatment Health Maintenance Due Date Last Done Comments Hepatitis C Virus (HCV) Screening 1955 Cologuard 2002 Immunochemical Fecal Occult Blood 2002 Respiratory Syncytial Virus (RSV) Immunization (Adult) (1 - Risk 60-74 years 1-dose series) 2017 Pneumococcal Immunization (50+ years) (3 of 3 - PCV20 or PCV21) 04/18/2022 04/18/2017, 03/09/2014 SARS-COV-2 Immunization ( season) 2024 04/25/2021, 10/09/2020, 09/18/2020 Influenza Immunization (#1) 02/07/202502/08, 03/20/2020, 04/06/2019, Additional history exists Colonoscopy 05/05/2027 05/05/2017 Colorectal Cancer Screening 05/05/2027 DTaP/Tdap/Td Immunization Discontinued 09/07/2010 PSA Discussion Discontinued 04/24/2016 Pneumococcal Immunization Combined Discontinued 04/18/2017, 03/09/2014 Zoster Immunization Completed 05/23/2020, 03/20/2020, 03/20/2020 Hepatitis B Immunization Aged Out No longer eligible based on patient's age to complete this topic Human Papillomavirus (HPV) Immunization Aged Out No longer eligible based on patient's age to complete this topic Meningococcal Immunization (ACWY) Aged Out No longer eligible based on patient's age to complete this topic Rotavirus Immunization Aged Out No lo nger eligible based on patient's age to complete this topic Procedures Procedure Name Priority Date/Time Associated Diagnosis Comments PSA SCREEN Routine 04/24/2016 8:10 AM PRODUCTION HELPER Pure hypercholesterolemia Essential hypertension with goal blood pressure less than 140/90 from Last 3 Months or Most Recently Relevant to Health Maintenance Results * PSA SCREEN (04/24/2016 8:10 AM PRODUCTION HELPER) PSA SCREEN, TOTAL 1.22 0.00 - 4.00 ng/mL 04/24/2016 1:40 PM PRODUCTION HELPER [facility] Blood specimen (specimen) Venipuncture / Unknown 04/24/2016 8:10 AM PRODUCTION HELPER 04/24/2016 8:14 AM PRODUCTION HELPER Narrative [facility] - 04/24/2016 1:40 PM PRODUCTION HELPER PSA NOTE: The PSA value should be used in conjunction with information available from clinical evaluation and other diagnostic procedures. us Aris Canada MD CHEMISTRY ORDERABLES Final Re sult [facility] [address] [facility] [place] [address] from Last 3 Months or Most Recently Relevant to Health Maintenance Insurance MEDICARE Care Teams Printing Supervisor Relationship Specialty Start Date End Date Aris Johns MD [address] [address] General Surgery 03/20/16
--- OUTSIDE RECORDS SUMMARY | 2024-12-15 12:34 | XMS_ITS | Encounter Summary ---
Author Organization [facility] Address 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
[2024-12-15 16:23] LABS: Alanine Aminotransferase 26 U/L (6-50); Albumin Level 4.3 g/dL (3.5-5.1); Alkaline Phosphatase 46 U/L (38-126); Anion Gap 9 mmol/L (4-12); Aspartate Amino Transferase 30 U/L (17-59); Bilirubin,Total 0.4 mg/dL (0.2-1.3); Blood Urea Nitrogen 13 mg/dL (9-20); Calcium 9.6 mg/dL (8.4-10.2); Carbon Dioxide 30 mmol/L (22-30); Chloride 101 mmol/L (98-107); Cholesterol 134 mg/dL (0-200); Estimated Glomerular Filt Rate > 60; Glucose 118 mg/dL (65-110); HDL Direct 29 mg/dL; Potassium 4.6 mmol/L (3.4-5.0); Sodium 140 mmol/L (137-145); Total Protein 7.6 g/dL (6.3-8.2); Triglycerides 227 mg/dL (<150)
[2024-12-15 16:44] LABS: Hemoglobin A1C 6.4 % (<5.7)
[2024-12-15 17:34] LABS: Vitamin B12 > 1000.0 pg/mL (239-931)
== END 2024-12-15 12:33 | disposition home or self-care (01) ==
PROVIDERS: PCP Nurse Practitioner; Visit Provider Nurse Practitioner
DX: E78.5 Hyperlipidemia, unspecified (principal); E11.9 Type 2 diabetes mellitus without complications; R53.83 Other fatigue
CPT/HCPCS: 36415; 80053; 80061; 82607; 83036